=== PATIENT | male | born 1990 | race Two or more races ===

== ENCOUNTER 2024-03-31 15:23 | Observation (INO) | payer BC ==
[~2024-03-31] VITALS: Ht 172.7 cm; Wt 103.9 kg
[~2024-03-31 15:23] MED LIST: MOTRIN IB200 MG PO
[2024-03-31] MEDS ORDERED: LISI20 PO (16:37)
[2024-03-31 17:00] LABS: BASOPHILS ABSOLUTE AUTO 0.05 K/mm3 (0.00-0.23); BASOPHILS PERCENT AUTO 0 % (0-2); EOSINOPHILS ABSOLUTE AUTO 0.01 K/mm3 (0.00-0.68); EOSINOPHILS PERCENT AUTO 0 % (0-6); Hematocrit 45.9 % (37.0-53.0); IMMATURE GRAN ABSOLUTE AUTO 0.08 K/mm3 (0.00-0.10); IMMATURE GRAN PERCENT AUTO 0 % (0-1); LYMPHOCYTES ABSOLUTE AUTO 1.65 K/mm3 (0.84-5.20); LYMPHOCYTES PERCENT AUTO 9 % (21-46); MONOCYTES PERCENT AUTO 8 % (4-13); Mean Corpuscular HGB 31.6 pg (26.0-34.0); Mean Corpuscular HGB Conc 34.9 g/dL (31.5-36.5); Mean Corpuscular Volume 91 fL (80-100); Mean Platelet Volume 9.1 fL (9.1-12.4); NEUTROPHILS ABSOLUTE AUTO 15.23 K/mm3 (1.96-9.15); NEUTROPHILS PERCENT AUTO 83 % (41-73); Platelet Count 365 K/mm3 (150-400); RDW Coefficient Variation 12.5 % (11.7-14.2); RDW Standard Deviation 41.4 fL (35.1-46.3); Red Blood Cell Count 5.06 M/mm3 (4.30-5.90); White Blood Cell Count 18.42 K/mm3 (4.00-11.30)
[2024-03-31] MEDS ORDERED: Ketorolac Tromethamine 30mg Vial IV ONE (17:30)
[2024-03-31 17:33] LABS: Albumin, Blood 4.6 g/dL (3.4-5.0); Albumin/Globulin Ratio 1.3 (0.8-1.8); Bilirubin, Total 1.7 mg/dL (0.1-1.0); Bun/Creatinine Ratio 15.3 (12.0-20.0); Calcium, Blood 10.3 mg/dL (8.5-10.1); Creatinine, Blood 0.72 mg/dL (0.60-1.20); Globulin, Blood 3.5 g/dL (2.2-4.0); Potassium, Blood 3.7 mmol/L (3.5-5.5); Total Protein, Blood 8.1 g/dL (6.4-8.2)
[2024-03-31] MEDS ORDERED: Ondansetron HCl 2 MG / ML 2ML Vial IV ONE (17:40)
[2024-03-31] MEDS ORDERED: NS 1,000 ML IV SCH ×2 (17:40→21:50)
[2024-03-31 18:26] LABS: Source, Urine Clean Catch
[2024-03-31 18:35] LABS: Appearance, Urine Clear (Clear); Bilirubin, Urine Neg (Neg); Blood, Urine Neg (Neg); Color, Urine Amber (P-Yellow); Glucose Qualitative, Urine Neg (Neg); Ketones, Urine 4+ (Neg); Leukocyte Esterase, Urine Neg (Neg); Nitrite, Urine Neg (Neg); Protein, Urine 1+ (Neg); Specific Gravity, Urine 1.015 (1.003-1.022); Urobilinogen, Urine 1+ (Normal)
[2024-03-31] MEDS ORDERED: Ampicillin Sod/Sulbactam Sod 3 GM in NS 100 ML IV ONE (20:10)
[2024-03-31] MEDS ORDERED: HYDROmorphone HCl/Pf 1MG SYR IV ONE (20:20)
[2024-03-31] MEDS ORDERED: HydrALAZINE HCl 20 MG / ML 1ML Vial IV PRN (21:50)
[2024-03-31] MEDS ORDERED: Metoclopramide HCl 5MG / ML 2ML Vial IV PRN (21:50)
[2024-03-31] MEDS ORDERED: Ondansetron HCl 2 MG / ML 2ML Vial IV PRN (21:50)
[2024-03-31] MEDS ORDERED: FentaNYL Citrate 50 MCG/ML 2 ML Injection IV PRN (21:55)
[2024-03-31 22:17] LABS: Magnesium, Blood 1.7 mg/dL (1.6-2.4)
[2024-03-31 23:14] VITALS: BP 162/120
[2024-04-01] VITALS (23 sets, daily range): BP systolic 129–165; BP diastolic 80–119
[2024-04-01] MEDS ORDERED: Ampicillin Sod/Sulbactam Sod 3 GM in NS 100 ML IV SCH
[2024-04-01 05:20] LABS: BASOPHILS ABSOLUTE AUTO 0.08 K/mm3 (0.00-0.23); BASOPHILS PERCENT AUTO 1 % (0-2); EOSINOPHILS ABSOLUTE AUTO 0.07 K/mm3 (0.00-0.68); EOSINOPHILS PERCENT AUTO 1 % (0-6); Hematocrit 42.3 % (37.0-53.0); Hemoglobin 14.7 g/dL (13.5-17.5); IMMATURE GRAN ABSOLUTE AUTO 0.04 K/mm3 (0.00-0.10); IMMATURE GRAN PERCENT AUTO 0 % (0-1); LYMPHOCYTES ABSOLUTE AUTO 2.79 K/mm3 (0.84-5.20); LYMPHOCYTES PERCENT AUTO 18 % (21-46); MONOCYTES ABSOLUTE AUTO 1.12 K/mm3 (0.16-1.47); MONOCYTES PERCENT AUTO 7 % (4-13); Mean Corpuscular HGB 31.9 pg (26.0-34.0); Mean Corpuscular HGB Conc 34.8 g/dL (31.5-36.5); Mean Corpuscular Volume 92 fL (80-100); Mean Platelet Volume 9.3 fL (9.1-12.4); NEUTROPHILS ABSOLUTE AUTO 11.35 K/mm3 (1.96-9.15); NEUTROPHILS PERCENT AUTO 73 % (41-73); Platelet Count 315 K/mm3 (150-400); RDW Coefficient Variation 12.6 % (11.7-14.2); RDW Standard Deviation 42.3 fL (35.1-46.3); Red Blood Cell Count 4.61 M/mm3 (4.30-5.90); White Blood Cell Count 15.45 K/mm3 (4.00-11.30)
[2024-04-01 05:36] LABS: International Normalized Ratio 1.07; Prothrombin Time Results 11.4 Sec (9.7-11.5)
[2024-04-01 05:50] LABS: Albumin, Blood 4.2 g/dL (3.4-5.0); Albumin/Globulin Ratio 1.4 (0.8-1.8); Bilirubin, Total 1.5 mg/dL (0.1-1.0); Bun/Creatinine Ratio 11.8 (12.0-20.0); Calcium, Blood 9.3 mg/dL (8.5-10.1); Creatinine, Blood 0.77 mg/dL (0.60-1.20); Potassium, Blood 3.6 mmol/L (3.5-5.5); Total Protein, Blood 7.2 g/dL (6.4-8.2)
[2024-04-01] MEDS ORDERED: HYDROmorphone HCl/Pf 1MG SYR IV PRN (06:10)
--- NOTE | 2024-04-01 06:11 | NUR ---
PROVIDER NOTIFIED PT VERBALIZED REQUEST FOR CHANGE IN PAIN MEDCICATION DUE TO POOR COVERAGE. ORDER OBTAINED FOR DILAUDID, SEE EMAR. WILL IMPLEMENT DIRECTED
[2024-04-01] MEDS ORDERED: FentaNYL Citrate 50 MCG/ML 2 ML Injection IV PRN (06:15)
--- NOTE | 2024-04-01 06:29 | NUR ---
SHIFT SUMMARY PT A/OX4. MEDICATED X 1 FOR HTN PER EMAR. NEW ORDER FOR PAIN MEDICATION OBTAINED, SEE EMAR. IVF AND ABX INFUSED. CHG BATH COMPLETED. NPO STATUS. PLAN FOR SURGICAL CONSULT FOR ACUTE APPENDICITIS.
[2024-04-01] MEDS ORDERED: Lisinopril 20 MG Tab PO SCH (09:00)
[2024-04-01] MEDS ORDERED: Bupivacaine 0.5% HCl 5 MG/ML 30MLVIAL ONE (11:55)
[2024-04-01] MEDS ORDERED: Lactated Ringer's 1,000 ML IV SCH (12:00)
[2024-04-01] MEDS ORDERED: Midazolam HCl 1MG / ML 2ML Vial ONE (12:30)
[2024-04-01] MEDS ORDERED: Rocuronium Bromide 10 MG/ML 5ML Injection IV ONE (12:31)
[2024-04-01] MEDS ORDERED: propofoL 20 ML IV ONE (12:31)
[2024-04-01] MEDS ORDERED: FentaNYL Citrate 50 MCG/ML 2 ML Injection ONE ×2 (12:41→13:00)
[2024-04-01] MEDS ORDERED: Ketorolac Tromethamine 30mg Vial ONE (13:15)
[2024-04-01] MEDS ORDERED: Sugammadex Sodium 200 MG/2ML SDV (100 MG/ML) ONE (13:15)
--- NOTE | 2024-04-01 13:47 | NUR ---
04/01/24 [id number] Hyacinth Gao NOTED: PT STATED THAT HE SMASHED HIS RIGHT INDEX FINGER, COVERED WITH GAUZE AND PAPER TAPE, DR AYALA AWARE
[2024-04-01] MEDS ORDERED: OxyCODONE HCL 5 MG TAB PO PRN (15:25)
[2024-04-01] MEDS ORDERED: Acetaminophen 325 MG TABLET PO PRN (15:25)
--- NOTE | 2024-04-01 16:46 | NUR ---
PATIENT IS ALERT AND ORIENTED AND COOPERATIVE WITH CARE. POD O LAPAROSCOPIC APPENDECTOMY. C/O PAIN AT INSCISION SITES FOLLOWING SURGERY. NO DRAINAGE ON LAP SITE DRESSINGS. IND IN THE ROOM. FAMILY WAS AT THE BEDSIDE TODAY. POST OP VITALS ARE STABLE, THE PATIENTS BLOOD PRESSURE IS TRENDING UP. MEDICATED FOR HTN THIS MORNING. WILL CONTINUE TO MONITOR
--- NOTE | 2024-04-02 00:34 | NUR ---
NEW ORDERS HOSPITALIST NOTIFIED PT C/O INSOMNIA AND IS REQUESTING BENADRYL. NEW ORDER FOR BENADRYL OBTAINED, SEE EMAR. WILL INFORM PATIENT AND MEDICATE DIRECTED. .
[2024-04-02] MEDS ORDERED: DiphenhydrAMINE HCL 25 MG Cap PO PRN (00:35)
--- NOTE | 2024-04-02 04:20 | NUR ---
SHIFT SUMMARY NO ACUTE CHANGES T/O SHIFT. PAIN MANAGED PER EMAR. GLADIS PO INTAKE. ABX INFUSED PER ORDERS. IS VOIDING IND. REPORTS PASSING FLATUS. AMBULATING IN ROOM. ABD INCISIONS CDI. PLAN FOR POSSIBLE D/C HOME TODAY.
[2024-04-02 05:33] VITALS: BP 139/89
[2024-04-02 07:35] VITALS: BP 142/90
[2024-04-02 09:40] LABS: BASOPHILS ABSOLUTE AUTO 0.06 K/mm3 (0.00-0.23); BASOPHILS PERCENT AUTO 1 % (0-2); EOSINOPHILS ABSOLUTE AUTO 0.15 K/mm3 (0.00-0.68); EOSINOPHILS PERCENT AUTO 2 % (0-6); Hematocrit 42.4 % (37.0-53.0); Hemoglobin 14.3 g/dL (13.5-17.5); IMMATURE GRAN ABSOLUTE AUTO 0.02 K/mm3 (0.00-0.10); IMMATURE GRAN PERCENT AUTO 0 % (0-1); LYMPHOCYTES ABSOLUTE AUTO 2.31 K/mm3 (0.84-5.20); LYMPHOCYTES PERCENT AUTO 26 % (21-46); MONOCYTES ABSOLUTE AUTO 0.84 K/mm3 (0.16-1.47); MONOCYTES PERCENT AUTO 10 % (4-13); Mean Corpuscular HGB 31.2 pg (26.0-34.0); Mean Corpuscular HGB Conc 33.7 g/dL (31.5-36.5); Mean Corpuscular Volume 92 fL (80-100); NEUTROPHILS ABSOLUTE AUTO 5.39 K/mm3 (1.96-9.15); NEUTROPHILS PERCENT AUTO 62 % (41-73); Platelet Count 272 K/mm3 (150-400); RDW Coefficient Variation 12.4 % (11.7-14.2); RDW Standard Deviation 42.7 fL (35.1-46.3); Red Blood Cell Count 4.59 M/mm3 (4.30-5.90); White Blood Cell Count 8.77 K/mm3 (4.00-11.30)
[2024-04-02 10:01] LABS: Albumin, Blood 3.8 g/dL (3.4-5.0); Albumin/Globulin Ratio 1.2 (0.8-1.8); Bun/Creatinine Ratio 10.4 (12.0-20.0); Calcium, Blood 9.6 mg/dL (8.5-10.1); Creatinine, Blood 0.77 mg/dL (0.60-1.20); Globulin, Blood 3.2 g/dL (2.2-4.0); Potassium, Blood 3.6 mmol/L (3.5-5.5)
[2024-04-02] MEDS ORDERED: ONDA4ODT MM (11:20)
[2024-04-02] MEDS ORDERED: OXAYDO5 M2 PO (11:21)
--- NOTE | 2024-04-02 12:38 | NUR ---
DISCHARGE SUMMARY POD1 LAP APPY, A/OX4, VSS, TOLERATING PO, AMBULATING IN THE HALLS INDEPENDENTLY, VOIDING, IV ACCESS REMOVED DURING DC INSTRUCTIONS. DISCUSSED DC INSTRUCTIONS INCLUDING HOME CARE, MEDICATIONS, AND FOLLOW UP APPOINTMENTS. NO QUESTIONS AT THIS TIME, DECLINED WC ESCORT AND LEFT AMBULATORY TO GO HOME WITH HIS .
== END 2024-04-02 12:14 | disposition home or self-care (01) ==
LOC: ER 15:23 → SURS 15:24 → ER 21:46 → SURS 21:46 → ERHOLD 21:46 → SURS 21:46 → ERHOLD 23:06 → SURS 23:06
PROVIDERS: Family Medicine; Nurse Practitioner Acute Care; Student in an Organized Health Care Education/Training Program; Surgery; ADMIT Internal Medicine
PROC: 0DTJ0ZZ Resection of Appendix, Open Approach (ICD-10-PCS; principal; 2024-04-01 11:30)
DX: K35.80 Unspecified acute appendicitis (principal); I10 Essential (primary) hypertension; F10.20 Alcohol dependence, uncomplicated
CPT/HCPCS: 36415; 71046; 74177; 80053; 83690; 83735; 85025; 85610; 88304; 93005; 93010; 96365; 96375; 99285-25; A9270; J0295; J0360; J1171; J1885; J2250; J2405; J2704; J3010; J7030; J7120; Q9967